=== PATIENT | male | born 1995 | race Caucasian/White ===

== ENCOUNTER 2021-03-29 11:14 | Emergency (ER) | payer OTHER, SELFPAY ==
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
[2021-03-29 11:28] VITALS: BP 131/80; PULSE 85; RESP 18; TEMP 36.9; O2SAT 100; BMI 21.5
[2021-03-29] MEDS: Cyclobenzaprine HCl 10 MG TABLET PO (11:46)
[2021-03-29 12:13] VITALS: BP 117/73; PULSE 74; RESP 18; TEMP 36.8; O2SAT 99
== END 2021-03-29 13:32 | disposition home or self-care (01) ==
PROVIDERS: Emergency Provider Emergency Medicine
DX: S13.4XXA Sprain of ligaments of cervical spine, initial encounter (principal); S39.012A Strain of muscle, fascia and tendon of lower back, initial encounter; S09.90XA Unspecified injury of head, initial encounter; M54.2 Cervicalgia; M54.6 Pain in thoracic spine; G44.309 Post-traumatic headache, unspecified, not intractable; V43.62XA Car passenger injured in collision with other type car in traffic accident, initial encounter; Y93.89 Activity, other specified; Y92.410 Unspecified street and highway as the place of occurrence of the external cause; Y99.9 Unspecified external cause status; Z79.899 Other long term (current) drug therapy
CPT/HCPCS: 70450; 71250; 72125; 99284

== ENCOUNTER 2022-06-12 10:25 | Emergency (ER) | payer OTHER, SELFPAY ==
--- NOTE | ~2022-06-12 | CT_ITS ---
EXAMINATION: CT ABDOMEN AND PELVIS WITHOUT CONTRAST CLINICAL INFORMATION: Left lower quadrant abdominal pain. COMPARISON: None TECHNIQUE: Multidetector volumetric imaging was performed from the superior aspect of the liver through the pubic symphysis. Sagittal and coronal reformatted images were obtained on the technologist's workstation. This CT examination was performed using dose optimization techniques as appropriate, variously including the following: *Automated exposure control *Adjustment of mA and/or kV according to patient size (this includes techniques or standardized protocols for targeted exams where dose is matched to indication/reason for exam; i.e. extremities or head) *Use of iterative reconstruction technique DLP: 382 mGy-cm FINDINGS: LUNG BASES: The visualized lung bases are unremarkable. LIVER, GALLBLADDER, AND BILIARY TREE: The liver is normal in size, shape, and attenuation. No focal hepatic lesion or biliary ductal dilatation is present. The gallbladder is unremarkable with no evidence of radiopaque gallstones, gallbladder wall thickening, or obvious pericholecystic inflammatory changes. PANCREAS: Unremarkable. SPLEEN: Unremarkable. ADRENAL GLANDS: Unremarkable. KIDNEYS AND URETERS: The kidneys are normal in size, shape, and attenuation. No hydronephrosis, hydroureter, or calculi seen. No perinephric stranding. BLADDER: Unremarkable. GASTROINTESTINAL TRACT: There is scattered stool and gas seen throughout the colon without distention or mural thickening. No pericolic fat stranding seen. The small bowel loops are normal caliber. The stomach is mildly distended recently ingested food. ABDOMINAL WALL: The appendix is normal caliber. LYMPH NODES: Normal. VASCULAR: Unremarkable. PELVIC VISCERA: Solitary phlebolith is seen in the left pelvis. OSSEOUS STRUCTURES: Unremarkable. CT/CT abdomen pelvis wo con IMPRESSION: No acute intra-abdominal process seen. Mild constipation. Appendix is normal. No radiopaque urolith or hydroureteronephrosis seen. Fleischner guidelines were followed.
[2022-06-12 10:28] VITALS: BP 128/83; PULSE 66; RESP 18; TEMP 37; O2SAT 99; BMI 21.6
[2022-06-12 13:33] LABS: MANUAL DIFF FLAG NO
[2022-06-12 13:34] LABS: Basophils Percent Auto 0.3 % (0-2); Eosinophils Percent Auto 0.3 % (0-4); Hematocrit 48.3 % (42.0-52.0); Hemoglobin 15.8 g/dl (14.0-18.0); Imm Gran Abs Auto 0.04 X10*3/uL (0.00-0.03); Imm Gran Pct Auto 0.3 % (0.0-0.4); Lymphocytes Absolute Auto 3.3 X10*3/uL (1.2-4.9); Lymphocytes Percent Auto 27.5 % (20-40); Mean Corpuscular HGB Conc 32.7 g/dl (31.0-36.0); Mean Corpuscular Hemoglobin 27.1 pg (27.0-33.0); Mean Corpuscular Volume 82.8 fL (80.0-98.0); Mean Platelet Volume 10.5 fL (9.4-12.4); Monocytes Absolute Auto 0.6 X10*3/uL (0.1-1.2); Monocytes Percent Auto 4.9 % (2-11); Neutrophils Percent Auto 66.7 % (45-73); Platelet Count 243 X10*3/uL (160-400); Red Blood Count 5.83 X10*6/uL (4.60-5.80); White Blood Count 11.9 X10*3/uL (4.8-10.8)
[2022-06-12 13:48] LABS: Alanine Aminotransferase 26 U/L (0-40); Albumin Level 4.8 g/dL (3.5-5.0); Alkaline Phosphatase 69 U/L (39-117); Anion Gap 13 (12-20); Aspartate Amino Transferase 18 U/L (5-37); Bilirubin Total 0.8 mg/dL (0.0-1.0); Blood Urea Nitrogen 12 mg/dL (9-16); Calcium 9.5 mg/dL (8.4-10.2); Carbon Dioxide 24 mmol/L (22-29); Chloride 107 mmol/L (96-108); Creatinine Clr Calc Pharmacy 109.4; Estimated Glomerular Filt Rate > 60; Glucose Random 112 mg/dL (60-115); Potassium 4.2 mmol/L (3.3-5.1); Sodium 140 mmol/L (135-145); Total Protein 8.1 g/dL (6.5-8.0)
[2022-06-12 16:42] LABS: Appearance Urine CLEAR; Color Urine YELLOW; Glucose Urine UA NEG (NEG); Leukocyte Esterase Urine NEG (NEG); Nitrite Urine NEG (NEG); Specific Gravity - Urine 1.015 (1.005-1.025); Urine Blood NEG (NEG); Urine Ketones NEG (NEG); Urine Protein NEG (NEG-TRACE)
[2022-06-12 16:53] LABS: Lipase 60 U/L (8-78); Magnesium 2.4 mg/dL (1.6-2.6)
--- NOTE | 2022-06-12 17:26 | ED_ITS ---
HPI - Abdominal Pain General Chief Complaint: Abdominal Pain Stated Complaint: abd pain Time Seen by Provider: 06/12/22 16:18 Source: patient Mode of arrival: ambulatory History of Present Illness HPI narrative: 27-year-old male with no significant past medical history presenting to the ED complaining of left lower quadrant abdominal pain, nausea, and diarrhea since this morning. Reports pain is intermittent with intermittent radiation to low back. Denies fever, chills, dysuria/hematuria, prior abdominal surgery, recent travel MD elicited complaint: abdominal pain Onset (ago): day(s) Related Data Previous Rx's Medication Instructions Recorded diazepam 5 mg tablet (Valium) 5 mg PO TID PRN muscle spasm #10 03/29/21 tabs ibuprofen 600 mg tablet 600 mg PO Q6H PRN pain #30 tabs 03/29/21 lidocaine 4 % topical patch 1 patch topical DAILY PRN pain #10 03/29/21 ea ondansetron 4 mg disintegrating 4 mg PO Q8H PRN nausea and 03/29/21 tablet vomiting #20 tabs Allergies Allergy/AdvReac Type Severity Reaction Status Date / Time No Known Allergies Allergy Verified 03/29/21 11:34 Review of Systems Review of Systems Constitutional: No Fever, No Chills ENT/Mouth: No Ear Pain, No Nasal Congestion, No sore throat, No Rhinorrhea, No Swallowing Difficulty Cardiovascular: No Chest Pain, No SOB Respiratory: No Cough, No Sputum, No Wheezing Gastrointestinal: + Nausea, No Vomiting, + Diarrhea, No Constipation, + Abdominal pain Genitourinary: No Dysuria, No Urinary Frequency, No Hematuria, No Urinary Incon tinence/retention, No Flank Pain Musculoskeletal: No joint pain, No Myalgias, No Joint Swelling Skin: No Skin Lesions, No rash Neuro: No Weakness, No Numbness, No Paresthesias Yes all other systems are reviewed and are negative Constitutional: Reports as per HPI [facility] Past Medical History Attestation statement: The following information was validated with the patient. Medical History No active medical problems Social History Social History (Updated 03/29/21 @ 12:02 by Carolina Awad DO) Advance Directives: No Advance Directives Information Provided: No Physical Exam ED Vital Signs: Vital Signs - 24 hr 06/12/22 10:28 06/12/22 17:41 Temperature 98.6 F 97.5 F Pulse Rate 66 56 Respiratory Rate 18 16 Blood Pressure 128/83 120/75 Pulse Oximetry 99 100 Oxygen Delivery Method Room Air Room Air BMI result Body Mass Index 21.6 Const General: cooperative, healthy appearing and no acute distress Orientation/consciousness: patient oriented x3 Limitations: no limitations HENMT Head: Yes normal to inspection and Yes atraumatic Ears: hearing grossly normal bilaterally General nose exam: Normal external nose present Face and sinus: Yes normal facial exam Eyes General: appearance normal, both eyes and all related structures EOM: EOMs intact bilaterally Neck Neck: Yes normal visual inspection and Yes no meningeal signs Resp Effort & Inspection: normal respiratory effort and no respiratory distress Cardio Rate: regular rate Heart sounds: S1 normal heart sound present and S2 normal heart sound present GI Inspection: Yes normal to inspection Palpation (GI): Soft to palpation, Tenderness to palpation present (GI) in the LLQ; with no rebound tenderness, no guarding and not rigid General: Yes no CVA tenderness Back/Spine/Pelvis Back: no CVA tenderness Skin Rashes: no rashes Wounds: no wounds Neuro General: patient oriented x3, tone normal and no meningeal signs Gait exam (Neuro): Normal gait present Extrem General: Yes normal to inspection Course Course Course Narrative: This patient was evaluated during a time of global shortage of iodinated contrast media. Based on guidance from [employer], best practices, and local institutional approaches an alternative path for evaluating and managing the patient have been employed in order to provide optimal care during this shortage. -WBC count 11.9. Labs otherwise unremarkable. UA negative CT abdomen pelvis wo con IMPRESSION: No acute intra-abdominal process seen. ? Mild constipation. Appendix is normal. ? No radiopaque urolith or hydroureteronephrosis seen.? ? Fleischner guidelines were followed. Results discussed with patient including worrisome signs and symptoms and strict return precautions, and when to return to the emergency department. They verbalized understanding and feel safe for discharge at this time. MDM - Abdominal Pain MDM Narrative Medical decision making narrative: 27-year-old male with no significant past medical history presenting to the ED complaining of left lower quadrant abdominal pain, nausea, and diarrhea since this morning. On exam vital signs stable, NAD/nontoxic appearing, abdomen soft with left lower quadrant/suprapubic tenderness, no CVA tenderness. Concern for diverticulitis vs renal stone/colic vs UTI/pyelonephritis. Appendicitis on differential however lower. Low concern for cholecystitis/cholelithiasis or pancreatitis Plan: Labs, UA, CT AP, symptomatic treatment Differential Diagnosis Differential diagnosis: Likely abdominal pain, acute appendicitis, constipation, diverticulitis, gastroenteritis and renal colic Medical Records Attestation: I reviewed the patient's medical records. Lab Data Attestation: I reviewed the patient's lab results. Result diagrams: 06/12/22 13:28 06/12/22 13:28 Labs: Lab Results 06/12/22 06/12/22 06/12/22 Range/Units 13:28 13:28 16:37 WBC 11.9 H (4.8-10.8) X10*3/uL RBC 5.83 H (4.60-5.80) X10*6/uL Hgb 15.8 (14.0-18.0) g/dl Hct 48.3 (42.0-52.0) % MCV 82.8 (80.0-98.0) fL MCH 27.1 (27.0-33.0) pg MCHC 32.7 (31.0-36.0) g/dl RDW 13.0 (11.0-16.0) % Plt Count 243 (160-400) X10*3/uL MPV 10.5 (9.4-12.4) fL Immature Gran % (Auto) 0.3 (0.0-0.4) % Neut % (Auto) 66.7 (45-73) % Lymph % (Auto) 27.5 (20-40) % [place] % (Auto) 4.9 (2-11) % Eos % (Auto) 0.3 (0-4) % Baso % (Auto) 0.3 (0-2) % Lymph # (Auto) 3.3 (1.2-4.9) X10*3/uL [place] # (Auto) 0.6 (0.1-1.2) X10*3/uL Eos # (Auto) 0.0 (0.0-0.4) X10*3/uL Baso # (Auto) 0.0 (0.0-0.2) X10*3/uL Abs Immat Gran (auto) 0.04 H (0.00-0.03) X10*3/uL Absolute Neuts (auto) 8.0 (2.0-8.3) x10*3/uL Absolute Nucleated RBC 0.000 (0.0-0.012) X10*3/uL Nucleated RBC % (auto) 0.0 (0.0-0.2) /100WBC Sodium 140 (135-145) mmol/L Potassium 4.2 (3.3-5.1) mmol/L Chloride 107 (96-108) mmol/L Carbon Dioxide 24 (22-29) mmol/L Anion Gap 13 (12-20) BUN 12 (9-16) mg/dL Creatinine 0.99 (0.5-1.4) mg/dL Estim Creat Clear Calc 109.4 Estimated GFR > 60 Random Glucose 112 (60-115) mg/dL Calcium 9.5 (8.4-10.2) mg/dL Magnesium 2.4 (1.6-2.6) mg/dL Total Bilirubin 0.8 (0.0-1.0) mg/dL AST 18 (5-37) U/L ALT 26 (0-40) U/L Alkaline Phosphatase 69 (39-117) U/L Total Protein 8.1 H (6.5-8.0) g/dL Albumin 4.8 (3.5-5.0) g/dL Lipase 60 (8-78) U/L Urine Color YELLOW Urine Appearance CLEAR Urine pH 7.0 (5.0-8.0) Ur Specific [place] 1.015 (1.005-1.025) Urine Protein NEG (NEG-TRACE) MG/DL Urine Glucose (UA) NEG (NEG) MG/DL Urine Ketones NEG (NEG) MG/DL Urine Blood NEG (NEG) Urine Nitrite NEG (NEG) Ur Leukocyte Esterase NEG (NEG) Discharge Plan Discharge Clinical Impression: Gastroenteritis, Abdominal pain Patient Disposition: Home, Self-Care Instructions: Abdominal Pain (ED) Additional Instructions: Your blood work and CT scan were reassuring/unremarkable. Practiced a bland t, avoid spicy foods, sweets, caffeine Make sure your staying hydrated. Please follow-up with your doctor. If symptoms persist or worsen, pain become constant/unbearable please return to the emergency department Prescriptions: No Action lidocaine 4 % adhesive patch,medicated 1 patch topical DAILY PRN (Reason: pain) Qty: 10 0RF Rx Instructions: may leave on for up to 12 hrs ibuprofen 600 mg tablet 600 mg PO Q6H PRN (Reason: pain) Qty: 30 0RF ondansetron 4 mg tablet,disintegrating 4 mg PO Q8H PRN (Reason: nausea and vomiting) Qty: 20 0RF diazepam [Valium] 5 mg tablet 5 mg PO TID PRN (Reason: muscle spasm) Qty: 10 0RF Referrals: Ashely Wilson MD [Physician] - ( NEEDED) Physician,None [Primary Care Provider] - Stand Alone Forms: Work/School Release
[2022-06-12 17:41] VITALS: BP 120/75; PULSE 56; RESP 16; TEMP 36.4; O2SAT 100
== END 2022-06-12 19:09 | disposition home or self-care (01) ==
PROVIDERS: Emergency Medicine; Physician Assistant; Emergency Provider Internal Medicine
DX: K52.9 Noninfective gastroenteritis and colitis, unspecified (principal); R10.32 Left lower quadrant pain
CPT/HCPCS: 36415; 74176; 80053; 81003; 83690; 83735; 85025; 99283; 99284